=== PATIENT | female | born 1990 | race Caucasian/White ===

== ENCOUNTER 2017-10-12 13:41 | Emergency (ER) | payer MEDICAID ==
[2017-10-12 17:20] LABS: UA SPECIFIC GRAVITY 1.025 (1.005-1.035); microscopic required? YES; urine erythrocyte 1+ (NEGATIVE)
[2017-10-12 17:23] LABS: BASOPHIL % 0.5 % (0-2); PLATELET COUNT 285 x10^3mcL (130-400)
[2017-10-12 17:28] LABS: RED CELL DISTRIBUTION WIDTH 16.5 % (11.5-14.5)
[2017-10-12 18:32] VITALS: BP 136/75
== END 2017-10-12 18:32 | disposition home or self-care (01) ==
LOC: ED 13:41
PROVIDERS: Emergency Medicine
DX: O21.0 Mild hyperemesis gravidarum (principal); O23.41 Unspecified infection of urinary tract in pregnancy, first trimester; Z3A.01 Less than 8 weeks gestation of pregnancy; Z88.0 Allergy status to penicillin
CPT/HCPCS: 36415; Q0162

== ENCOUNTER 2017-11-04 19:26 | Emergency (ER) | payer MEDICAID ==
[~2017-11-04] VITALS: Ht 165.1 cm; Wt 99.5 kg
[2017-11-04 19:37] VITALS: Ht 165.1 cm; Wt 99.5 kg
[2017-11-04 22:05] VITALS: BP 134/74
== END 2017-11-04 22:05 | disposition home or self-care (01) ==
LOC: ED 19:26
DX: O26.891 Other specified pregnancy related conditions, first trimester (principal); S60.222A Contusion of left hand, initial encounter; X58.XXXA Exposure to other specified factors, initial encounter; Z3A.09 9 weeks gestation of pregnancy; Z88.0 Allergy status to penicillin; Y93.89 Activity, other specified; Y92.89 Other specified places as the place of occurrence of the external cause; Y99.8 Other external cause status

== ENCOUNTER 2018-12-16 09:47 | Emergency (ER) | payer MEDICAID ==
[~2018-12-16] VITALS: Ht 160 cm; Wt 96.2 kg
[2018-12-16 09:53] VITALS: BP 110/65; Ht 160 cm; Wt 96.2 kg
== END 2018-12-16 11:20 | disposition home or self-care (01) ==
LOC: ED 09:47
DX: R21 Rash and other nonspecific skin eruption (principal); R50.9 Fever, unspecified; R05 Cough; R09.81 Nasal congestion; Z88.0 Allergy status to penicillin

== ENCOUNTER 2018-12-26 14:07 | Emergency (ER) | payer MEDICAID ==
[~2018-12-26] VITALS: Ht 160 cm; Wt 95.3 kg
[2018-12-26 16:47] VITALS: BP 121/73
== END 2018-12-26 16:47 | disposition home or self-care (01) ==
LOC: ED 14:07
DX: L30.9 Dermatitis, unspecified (principal); Z88.0 Allergy status to penicillin; Z98.84 Bariatric surgery status
CPT/HCPCS: J2930

== ENCOUNTER 2019-09-28 12:57 | Emergency (ER) | payer OTHER ==
[~2019-09-28] VITALS: Ht 160 cm; Wt 70.3 kg
[2019-09-28 13:07] VITALS: BP 124/41; Ht 160 cm; Wt 70.3 kg
[2019-09-28 14:09] LABS: CALCIUM 8.8 mg/dL (8.5-10.1); CARBON DIOXIDE 28.4 mmol/L (21-32); CHLORIDE SERUM 101 mmol/L (98-107); CREATININE SERUM 0.6 mg/dL (0.6-1.0); GFR1 > 60 mL/min; GLUCOSE SERUM 74 mg/dL (74-106); POTASSIUM SERUM 3.9 mmol/L (3.5-5.1); SODIUM SERUM 134 mmol/L (136-145)
[2019-09-28 14:14] LABS: ALBUMIN 3.8 g/dL (3.4-5.0); ALKALINE PHOSPHATASE 98 U/L (46-116); ALT/SGPT 57 U/L (14-59); AST/SGOT 88 U/L (15-37); LIPASE 476 IU/L (73-393); TOTAL PROTEIN, SERUM 7.4 g/dL (6.4-8.2)
[2019-09-28 14:30] LABS: BASOPHIL % 0.6 % (0-2); PLATELET COUNT 263 x10^3mcL (130-400); RED CELL DISTRIBUTION WIDTH 15.9 % (11.5-14.5)
== END 2019-09-28 16:11 | disposition left against medical advice (07) ==
LOC: ED 12:57
PROVIDERS: Specialist
DX: Z53.21 Procedure and treatment not carried out due to patient leaving prior to being seen by health care provider (principal)

== ENCOUNTER 2019-11-01 17:10 | Emergency (ER) | payer MEDICAID ==
[~2019-11-01] VITALS: Ht 167.6 cm; Wt 68.0 kg
[2019-11-01 17:28] VITALS: Ht 167.6 cm; Wt 68.0 kg
[2019-11-01 18:09] LABS: BASOPHIL % 0.4 % (0-2); PLATELET COUNT 242 x10^3mcL (130-400)
[2019-11-01 18:10] LABS: RED CELL DISTRIBUTION WIDTH 15.6 % (11.5-14.5)
[2019-11-01 18:17] LABS: CALCIUM 8.3 mg/dL (8.5-10.1); CARBON DIOXIDE 26.4 mmol/L (21-32); CHLORIDE SERUM 107 mmol/L (98-107); CREATININE SERUM 0.7 mg/dL (0.6-1.0); GFR1 > 60 mL/min; GLUCOSE SERUM 97 mg/dL (74-106); POTASSIUM SERUM 3.9 mmol/L (3.5-5.1); SODIUM SERUM 144 mmol/L (136-145)
[2019-11-01 18:21] LABS: ALBUMIN 3.6 g/dL (3.4-5.0); ALKALINE PHOSPHATASE 75 U/L (46-116); ALT/SGPT 55 U/L (14-59); AST/SGOT 60 U/L (15-37); LIPASE 128 IU/L (73-393)
[2019-11-02 02:32] VITALS: BP 101/40
== END 2019-11-02 02:32 | disposition home or self-care (01) ==
LOC: ED 17:10
PROVIDERS: Emergency Medicine
DX: K80.20 Calculus of gallbladder without cholecystitis without obstruction (principal); K80.80 Other cholelithiasis without obstruction
CPT/HCPCS: J1200; J1885; J2270; J2405; J7030; Q0092; Q9967

== ENCOUNTER 2019-11-27 05:57 | Inpatient (IN) | payer OTHER ==
[~2019-11-27] VITALS: Ht 157.5 cm; Wt 69.9 kg
[2019-11-27 07:03] LABS: UA SPECIFIC GRAVITY 1.025 (1.005-1.035); microscopic required? YES; urine erythrocyte NEGATIVE (NEGATIVE)
[2019-11-27 07:14] LABS: BASOPHIL % 0.4 % (0-2); PLATELET COUNT 211 x10^3mcL (130-400); RED CELL DISTRIBUTION WIDTH 15.2 % (11.5-14.5)
[2019-11-27 07:30] LABS: CALCIUM 8.3 mg/dL (8.5-10.1); CARBON DIOXIDE 27.5 mmol/L (21-32); CHLORIDE SERUM 107 mmol/L (98-107); CREATININE SERUM 0.6 mg/dL (0.6-1.0); GFR1 > 60 mL/min; GLUCOSE SERUM 98 mg/dL (74-106); POTASSIUM SERUM 3.5 mmol/L (3.5-5.1); SODIUM SERUM 141 mmol/L (136-145)
[2019-11-27 07:43] LABS: ALKALINE PHOSPHATASE 134 U/L (46-116); ALT/SGPT 883 U/L (14-59); BILIRUBIN TOTAL 1.7 mg/dL (0.20-1.00); LIPASE 261 IU/L (73-393); TOTAL PROTEIN, SERUM 6.5 g/dL (6.4-8.2)
[2019-11-27 08:00] LABS: ALBUMIN 3.3 g/dL (3.4-5.0); AST/SGOT 1289 U/L (15-37)
[2019-11-27 12:09] VITALS: BP 92/51
[2019-11-27 15:14] VITALS: BP 98/61
[2019-11-27 21:16] VITALS: BP 98/52
[2019-11-28 05:06] VITALS: BP 92/51
[2019-11-28 06:28] LABS: BASOPHIL % 0.7 % (0-2); PLATELET COUNT 194 x10^3mcL (130-400)
[2019-11-28 06:43] LABS: RED CELL DISTRIBUTION WIDTH 15.5 % (11.5-14.5)
[2019-11-28 07:36] VITALS: BP 91/39
[2019-11-28 08:19] LABS: ALKALINE PHOSPHATASE 146 U/L (46-116); ALT/SGPT 573 U/L (14-59); AST/SGOT 289 U/L (15-37); CALCIUM 8.1 mg/dL (8.5-10.1); CHLORIDE SERUM 108 mmol/L (98-107); CREATININE SERUM 0.6 mg/dL (0.6-1.0); GFR1 > 60 mL/min; GLUCOSE SERUM 81 mg/dL (74-106); POTASSIUM SERUM 3.9 mmol/L (3.5-5.1); SODIUM SERUM 141 mmol/L (136-145)
[2019-11-28 11:20] VITALS: BP 93/48
[2019-11-28 15:20] VITALS: BP 102/53
[2019-11-28 19:59] VITALS: BP 107/53
[2019-11-29 04:50] VITALS: BP 91/57
[2019-11-29] MEDS ORDERED: ZOF4 PO (08:05)
[2019-11-29] MEDS ORDERED: NORCO1 TA2 PO (08:05)
[2019-11-29 08:10] VITALS: BP 91/57
[2019-11-29 08:49] VITALS: BP 94/56
[2019-12-01 16:27] VITALS: Ht 157.5 cm; Wt 69.9 kg
== END 2019-11-29 12:27 | disposition home or self-care (01) | DRG 263 ==
LOC: ED 05:57 → MU 09:57
PROVIDERS: Emergency Medicine; Surgery; ADMIT Hospitalist
PROC: 0FT44ZZ Resection of Gallbladder, Percutaneous Endoscopic Approach (ICD-10-PCS; principal; 2019-11-28 08:30)
DX: K80.62 Calculus of gallbladder and bile duct with acute cholecystitis without obstruction (principal); N39.0 Urinary tract infection, site not specified; Z88.0 Allergy status to penicillin; Z98.84 Bariatric surgery status
CPT/HCPCS: 78226; A9537; G0378; J0744; J1170; J1644; J1885; J1956; J2250; J2270; J2405; J2550; J3010; J3490; J7030

== ENCOUNTER 2019-12-01 13:22 | Emergency (ER) | payer OTHER ==
[~2019-12-01] VITALS: Ht 154.9 cm; Wt 68.5 kg
[~2019-12-01 13:22] MED LIST: NORCO1 TA2 PO; ZOF4 PO
[2019-12-01 13:35] VITALS: Ht 154.9 cm; Wt 68.5 kg
[2019-12-01 15:51] VITALS: BP 106/71
== END 2019-12-01 15:51 | disposition home or self-care (01) ==
LOC: ED 13:22
DX: K59.00 Constipation, unspecified (principal); R10.30 Lower abdominal pain, unspecified; Z90.49 Acquired absence of other specified parts of digestive tract; Z88.0 Allergy status to penicillin; Z98.84 Bariatric surgery status

== ENCOUNTER 2019-12-05 11:01 | Emergency (ER) | payer OTHER ==
[~2019-12-05] VITALS: Ht 154.9 cm; Wt 67.6 kg
[2019-12-05 11:06] VITALS: Ht 154.9 cm; Wt 67.6 kg
[2019-12-05 12:17] VITALS: BP 101/55
== END 2019-12-05 12:17 | disposition home or self-care (01) ==
LOC: ED 11:01
DX: Z48.01 Encounter for change or removal of surgical wound dressing (principal)

== ENCOUNTER 2020-07-26 16:07 | Emergency (ER) | payer OTHER ==
[~2020-07-26] VITALS: Ht 152.4 cm; Wt 65.4 kg
[2020-07-26 18:54] VITALS: BP 104/61
== END 2020-07-26 18:54 | disposition home or self-care (01) ==
LOC: ED 16:07
DX: F41.9 Anxiety disorder, unspecified (principal); Z20.828 Contact with and (suspected) exposure to other viral communicable diseases
CPT/HCPCS: U0003